=== PATIENT | male | born 1970 | race Caucasian/White ===

== ENCOUNTER 2021-04-06 16:48 | Emergency (ER) | payer BC, OTHER ==
[2021-04-06 17:46] LABS: HEMOGLOBIN 14.8 gm/dl (14.0-17.5); RED BLOOD COUNT 5.13 M/UL (4.20-5.50)
[2021-04-06 18:03] LABS: BUN/CREATININE RATIO 17 (0-10)
== END 2021-04-06 19:55 | disposition home or self-care (01) ==
LOC: ER1 16:48
PROVIDERS: Emergency Medicine
DX: U07.1 COVID-19 (principal); J12.82 Pneumonia due to coronavirus disease 2019; I10 Essential (primary) hypertension; E78.5 Hyperlipidemia, unspecified
CPT/HCPCS: 0240U; 71045; 80053; 82550; 82553; 83874; 83880; 84484; 85025; 99285